=== PATIENT | male | born 1960 | race Caucasian/White ===

== ENCOUNTER 2017-12-08 06:35 | Inpatient (IN) | payer OTHER, MEDICAID ==
[2017-12-08] MEDS: BUPIVACAINE 0.25% (MPF) 30 ML INJ (06:54)
[2017-12-08] MEDS: POLYMYXIN/BACITRACIN 1L IRRIG (06:55)
[2017-12-08] MEDS: GELATIN SIZE 100 SPONGE (06:55)
[2017-12-08] MEDS: THROMBIN 5000 UNIT VIAL (06:55)
[2017-12-08] MEDS ORDERED: ACETAMINOPHEN 1000 MG/100 ML IVPB (07:00)
[2017-12-08] MEDS ORDERED: CEFAZOLIN 1 GM INJ (07:00)
[2017-12-08] MEDS: CEFAZOLIN 2 GM/50 ML (PMX) 50 ML IVPB (07:03)
[2017-12-08] MEDS ORDERED: MIDAZOLAM 1 MG/ML 2 ML INJ (07:06)
[2017-12-08] MEDS ORDERED: PROPOFOL 20 ML ×2 (07:06→07:50)
[2017-12-08] MEDS ORDERED: METOCLOPRAMIDE 10 MG INJ (07:06)
[2017-12-08] MEDS ORDERED: ROCURONIUM 50 MG INJ (07:06)
[2017-12-08] MEDS ORDERED: HYDROmorphONE 2 MG/ML SYG (07:22)
[2017-12-08] MEDS: LACTATED RINGER'S 1,000 ML IV ×2 (07:30→08:00)
[2017-12-08] MEDS ORDERED: METOPROLOL 5 MG INJ (07:50)
[2017-12-08] MEDS ORDERED: ONDANSETRON 4 MG INJ (07:50)
[2017-12-08] MEDS ORDERED: ONDANSETRON 4 MG INJ IV ×2 (08:30→10:00)
[2017-12-08] MEDS ORDERED: DIPHENHYDRAMINE 50 MG INJ IV (08:30)
[2017-12-08] MEDS ORDERED: HYDROmorphONE 1 MG/5 ML IV SYRINGE IV (08:30)
[2017-12-08] MEDS ORDERED: MEPERIDINE 25 MG INJ IV (08:30)
[2017-12-08] MEDS ORDERED: DIAZEPAM 5 MG TAB PO (10:00)
[2017-12-08] MEDS ORDERED: TRIMETHOBENZAMIDE 100 MG/ML VIAL IM (10:00)
[2017-12-08] MEDS ORDERED: DIAZEPAM 5 MG/ML SYG IM (10:00)
[2017-12-08] MEDS ORDERED: AL HYDROX/MG HYDROX/SIMETH 30 ML CUP PO (10:00)
[2017-12-08] MEDS ORDERED: ZOLPIDEM 5 MG TAB PO (10:00)
[2017-12-08] MEDS ORDERED: NACL 0.9% 3 ML SYG IV (10:00)
[2017-12-08] MEDS ORDERED: CEPASTAT LOZENGE MT (10:00)
[2017-12-08] MEDS ORDERED: PROCHLORPERAZINE 10 MG TAB PO (10:00)
[2017-12-08] MEDS ORDERED: NALOXONE (0.4 MG/ML) INJ IV (10:00)
[2017-12-08] MEDS ORDERED: BETHANECHOL 25 MG TAB PO (10:00)
[2017-12-08] MEDS ORDERED: DIPHENHYDRAMINE 50 MG CAP PO (10:00)
[2017-12-08] MEDS ORDERED: ACETAMINOPHEN 325 MG TAB PO (10:00)
[2017-12-08] MEDS: HYDROmorphONE 0.2 MG/ML PCA IV ×2 (10:03→22:32)
[2017-12-08] MEDS: HYDROmorphONE 1 MG/5 ML IV SYRINGE IV ×2 (10:15→10:21)
[2017-12-08] MEDS: CEFAZOLIN 1 GM/50 ML (PMX) 50 ML IVPB ×2 (13:31→18:01)
[2017-12-08] MEDS: DEXTROSE 5%-0.45% NACL 1,000 ML IV ×2 (13:31→19:39)
[2017-12-08] MEDS: RANITIDINE 150 MG TAB PO (20:28)
[2017-12-08] MEDS ORDERED: ALPRAZOLAM 1 MG TAB PO (21:00)
[2017-12-09] MEDS: CEFAZOLIN 1 GM/50 ML (PMX) 50 ML IVPB ×2 (01:03→05:31)
[2017-12-09] MEDS: DEXTROSE 5%-0.45% NACL 1,000 ML IV (05:29)
[2017-12-09 05:46] LABS: HEMOGLOBIN 12.3 g/dl (14.0-18.0)
[2017-12-09 06:51] LABS: ANION GAP 10 (8-16); BLOOD UREA NITROGEN 15 mg/dl (7-20); CALCIUM 8.9 mg/dl (8.4-10.2); CARBON DIOXIDE 30 mmol/L (21-31); CHLORIDE 105 mmol/L (97-110); CREATININE 1.11 mg/dl (0.61-1.24); GLUCOSE 120 mg/dl (70-220); POTASSIUM 3.9 mmol/L (3.5-5.1); SODIUM 141 mmol/L (135-144)
[2017-12-09] MEDS ORDERED: BETHANECHOL 25 MG TAB PO (08:00)
[2017-12-09] MEDS: ASCORBIC ACID 500 MG TAB PO (08:44)
[2017-12-09] MEDS: RANITIDINE 150 MG TAB PO (08:44)
[2017-12-09] MEDS: FERROUS SULFATE (EC) 325 MG TAB PO ×2 (08:45→13:11)
[2017-12-09] MEDS: DOCUSATE SODIUM 100 MG CAP PO (08:45)
[2017-12-09] MEDS: HYDROCODONE/APAP (5/325) TAB PO ×2 (08:48→12:55)
[2017-12-09 16:15] LABS: ADD UMIC NO; UR ASCORBIC ACID 40 mg/dL (NEGATIVE); UR BILIRUBIN (Dip) NEGATIVE (NEGATIVE); UR BLOOD (Dip) NEGATIVE (NEGATIVE); UR CLARITY CLEAR (CLEAR); UR COLOR YELLOW (YELLOW); UR GLUCOSE (Dip) NEGATIVE (NEGATIVE); UR KETONES (Dip) NEGATIVE (NEGATIVE); UR LEUKOCYTE ESTERASE (Dip) NEGATIVE Leu/ul (NEGATIVE); UR NITRITE (Dip) NEGATIVE (NEGATIVE); UR SPECIFIC GRAVITY (Dip) 1.011 (1.003-1.030); UR TOTAL PROTEIN (Dip) NEGATIVE (NEGATIVE); UR UROBILINOGEN (Dip) NEGATIVE (NEGATIVE)
== END 2017-12-09 18:40 | disposition home or self-care (01) | DRG 520 ==
LOC: REC 06:35 → MS1 11:40
PROC: 01NB0ZZ Release Lumbar Nerve, Open Approach (ICD-10-PCS; principal; 2017-12-08 07:00)
PROC: 0SB40ZZ Excision of Lumbosacral Disc, Open Approach (ICD-10-PCS; 2017-12-08 07:00)
PROC: 00BY0ZZ Excision of Lumbar Spinal Cord, Open Approach (ICD-10-PCS; 2017-12-08 07:00)
DX: M51.16 Intervertebral disc disorders with radiculopathy, lumbar region (principal); M48.061 Spinal stenosis, lumbar region without neurogenic claudication; E88.2 Lipomatosis, not elsewhere classified; F90.9 Attention-deficit hyperactivity disorder, unspecified type
CPT/HCPCS: 72020; 80048; 81003; 85014; 85018; 86850; 86900; 86901; 86920; 87086; 88304; 88311; 97110; 97116; 97161; 97530

== ENCOUNTER 2018-04-22 11:17 | Emergency (ER) | payer SELFPAY, OTHER ==
[2018-04-22] MEDS ORDERED: IBUPROFEN 600 MG TAB PO (15:00)
== END 2018-04-22 17:45 | disposition home or self-care (01) ==
LOC: FTE 11:17
DX: M51.16 Intervertebral disc disorders with radiculopathy, lumbar region (principal); R32 Unspecified urinary incontinence; R15.9 Full incontinence of feces; J45.909 Unspecified asthma, uncomplicated
CPT/HCPCS: 72148; 99284